=== PATIENT | female | born 2000 | race Caucasian/White ===

== ENCOUNTER 2024-10-26 12:41 | Outpatient (CLI) | payer SELFPAY ==
--- OUTSIDE RECORDS SUMMARY | 2024-10-26 12:44 | XMS_ITS | Clinical Summary ---
Author Organization [facility] Address [address] [place] [address] Care Team Providers Care Consumer Loan Processor Name Role Phone Unavailable Primary Care Provider Unavailabl e Allergies No known active allergies Medications ammonium lactate 12 % CreamIndication s:Keratosis pilaris 1 Application by Topical route 2 times daily. rub in to affected area well 1 Tube 0 4 Active benzoyl peroxide 5 % GelIndications: Acne Apply to your facial acne after washing twice a day. 1 Tube 0 4 Active ibuprofen (CHILDRENS IBUPROFEN) 100 MG/5ML oral suspension Take 20 mL by mouth every 8 hours as needed for Mild Pain. 1 Bottle 8 Active Immunizations Immunization Administration Dates Next Due DTaP 11/05/2007,11/27/2003 DTaP/IPV/Hep B Combined Vaccine 02/27/2003,12/28,2002 HIB, Unspecified Formulation 11/27/2003, 02/27/2003,2002,10/26 Hepatitis A Pediatric Vaccine 04/21/2007, 007 INACTIVATED POLIOVIRUS (IPV) 11/05/2007 Influenza Vaccine 0.5ml 04/01/2004,03/04/2004 MMR Vaccine 11/05/2007,08/30/2003 Meningococcal Vaccine IM (Conjugate) 10/03/2013 Pneumococcal Conjugate 7-Felisa ent Vac <5yo, IM 06/09/2005,02/27/2003,2002,10/26 Tdap Vaccine 10/03/2013 Varicella Vaccine 11/05/2007,08/30/2003 Social History Tobacco Use Types Packs/Day Years Used Date Smoking Tobacco: Never Alcohol Use Standard Drinks/Week Comments Not Asked 0 (1 standard drink = 0.6 oz pur e alcohol) Comments No Sex and Gender Information Value Date Recorded Sex Assigned at Not on file Legal Sex Female 7:44 AM EST Gender Identity Female 08/17/2017 2:50 PM EDT Sexual Orientation Not on file Last Filed Vital Signs Vital Sign Reading Time Taken Comments Blood Pressure 99/50 08/17/2017 2:43 PM EDT Pulse 103 08/17/2017 2:43 PM EDT Temperature 36.9 C (98.4 F) 08/17/2017 2:43 PM EDT Respiratory Rate 18 08/17/2017 2:43 PM EDT Oxygen Saturation 99% 08/17/2017 2:43 PM EDT Inhaled Oxygen Concentration - - Weight 48.7 kg (107 lb 7 oz) 08/17/2017 2:07 PM EDT Height 144.1 cm (4' 8.75 ) 10/03/2013 1:30 PM ED T Body Mass Index - - Plan of Treatment Health Maintenance Due Date Last Done Comments GONORRHEA SCREEN 2002 HEPATITIS C VIRUS SCREENING 2002 HIV SCREENING DISCUSSION 2017 HPV VACCINE ADOL (1 - 3-dose series) 2017 HPV VACCINE (1 - 3-dose series) 2017 CHLAMYDIA SCREEN 2018 CERVICAL CANCER SCREENING DISCUSSION 08/26/2023 COVID-19 VACCINE ( season) 2023 TETANUS 11/14/2024 11/14/2014, 09/2013, 11/05/2007, Additional history exists INFLUENZA VACCINE (#1) 2024 0, 05/01/2009, 04/01/2004, Additional history exists HEP B VACCINE Completed 02/27/2003, 03/2002, 2002, Additional history exists HIB VACCINE Discontinued 11/27/2003, 03/2002, 2002, Additional history exists PNEUMOCOCCAL VACCINE SERIES Aged Out 06/09/2005, 02/27/2003, 2002, Additional history exists No longer eligible based on patient's age to complete this topic HEP A VACCINE Discontinued 04/21/2007, 10/14/2006 MMR VACCINE Discontinued 11/05/2007, 08/30/2003 VARICELLA VACCINE Discontinued 11/05/2007, 08/30/2003 MCV4 VACCINE Discontinued 10/03/2013 DTAP/TDAP/TD VACCINE Discontinued 11/14/2014, 10/03/2013, 11/05/2007, Additional history exists TDAP (ADULT) Completed 11/14/2014, 09/2013, 11/05/2007, Additional history exists Insurance [facility]
== END 2024-10-26 23:59 | disposition home or self-care (01) ==
LOC: LAB.DROPOF 12:41
PROVIDERS: PCP Student in an Organized Health Care Education/Training Program; Visit Provider Student in an Organized Health Care Education/Training Program
DX: H92.11 Otorrhea, right ear (principal)
CPT/HCPCS: 87070; 87077